=== PATIENT | male | born 2000 | race Caucasian/White ===

== ENCOUNTER 2020-05-14 22:10 | Emergency (ER) | payer SELFPAY ==
[~2020-05-14] VITALS: Ht 180.3 cm; Wt 104.3 kg
[~2020-05-14 22:10] MED LIST: CRUTCH2 USE; RXHYDACE PO
== END 2020-05-15 00:03 | disposition home or self-care (01) ==
LOC: ER 22:10
DX: S02.2XXA Fracture of nasal bones, initial encounter for closed fracture (principal); S00.12XA Contusion of left eyelid and periocular area, initial encounter; Z87.891 Personal history of nicotine dependence; W51.XXXA Accidental striking against or bumped into by another person, initial encounter
CPT/HCPCS: 96372; 99283; J1885